=== PATIENT | female | born 1995 | race Hispanic/Latino ===

== ENCOUNTER 2018-11-23 15:00 | Emergency (ER) | payer BC ==
[~2018-11-23] VITALS: Ht 165.1 cm; Wt 72.6 kg
[2018-11-23] MEDS ORDERED: SODIUM CHLORIDE 0.9% 1000ML 1,000 ML ONE (15:20)
[2018-11-23] MEDS ORDERED: ONDANSETRON HCL INJ 2MG/ML 2ML 2 MG/ML VIAL ONE (15:20)
[2018-11-23] MEDS ORDERED: KETOROLAC TROMETHAMINE 30 MG/ML VIAL ONE (15:21)
--- NOTE | 2018-11-23 15:34 | NUR ---
PARENTS HERE TO ROOM WITH PT.
--- NOTE | 2018-11-23 15:34 | NUR ---
WARM BLANKETS. MD STATES BLADDER SCAN WITH ULTRASOUND DONE AND HAS POST RISIDUAL >100CC
--- NOTE | 2018-11-23 15:35 | NUR ---
HOLD IVF'S PER MD. NOT GIVEN AT THIS TIME.
--- NOTE | 2018-11-23 15:36 | NUR ---
PREG TEST NEGATIVE.
--- NOTE | 2018-11-23 16:03 | NUR ---
IN AND OUT CATHETER DONE FOR OUTPUT MEASUREMENT PER MD. MD STATES OBSERVATION OF "REALLY BIG BLADDER" ON CT SCAN AND "A LITTLE" MORE THAN 100CC OF URINE NOTED IN BLADDER POST VOID. STERILE PROCEDURE FOLLOWED, MOM WITH PT, STRAIGHT CATHED EMPTIED 135CC OF CLEAR STRAW COLORED URINE. PT TOLERATED FAIRLY WELL.
--- NOTE | 2018-11-23 16:03 | Diagnostic Imaging Report ---
EXAMINATION: CT of the abdomen and pelvis without contrast. TECHNIQUE: Helical CT images of the abdomen and pelvis were performed from the lung bases to the lesser trochanters. No intravenous contrast was given per renal stone protocol. Coronal and sagittal reformatted images were obtained.Dose modulation, iterative reconstruction, and/or weight based adjustment of the mA/kV was utilized to reduce the radiation dose to as low as reasonably achievable. COMPARISON: None. CLINICAL HISTORY:Abdominal pain DISCUSSION: ABSENCE OF INTRAVENOUS CONTRAST DECREASES SENSITIVITY FOR DETECTION OF FOCAL LESIONS AND VASCULAR PATHOLOGY. ABDOMEN/PELVIS: LOWER THORAX: Unremarkable. HEPATOBILIARY:No focal hepatic lesions. No biliary ductal dilation. The gallbladder is normal. SPLEEN: No splenomegaly. PANCREAS: No focal masses or ductal dilatation. ADRENALS: No adrenal nodules. KIDNEYS/URETERS: No hydronephrosis, stones, or solid mass lesions. PELVIC ORGANS/BLADDER: The bladder is normal. PERITONEUM/RETROPERITONEUM: No free air or fluid. LYMPH NODES: No intra-abdominal,retroperitoneal, pelvic or inguinal lymphadenopathy. VESSELS: Limited evaluation. GI TRACT: No distention or wall thickening. Appendix normal. BONES AND SOFT TISSUES: No bony destructive lesions. No soft tissue abnormalities. IMPRESSION: No acute noncontrast CT finding. Signed by: Dr. Suleiman Sanchez M.D. on 11/23/2018 4:00 PM
--- NOTE | 2018-11-23 17:05 | Diagnostic Imaging Report ---
ADDENDUM #1 I have reviewed the images and agree with findings in preliminary report. Signed by: Dr. Alma Mills M.D. on 11/23/2018 9:19 PM ORIGINAL REPORT Exam: Noncontrast Head CT History: Dizziness, 23-year-old female Comparison studies: None Technique: Axial images were obtained from the skull base to the vertex. Coronal and sagittal reconstructions obtained from the axial data. Dose modulation, iterative reconstruction, and/or weight based adjustment of the mA/kV was utilized to reduce the radiation dose to as low as reasonably achievable. Findings: Scalp/skull: No abnormalities. No fractures, blastic or lytic lesions. Extra-axial spaces: No masses. No fluid collections. Brain sulci: Appropriate for age. Ventricles: Normal in size and configuration. No hydrocephalus. Parenchyma: No abnormal densities. No masses, hemorrhage, acute or chronic cortical vascular insults. Sellar/suprasellar region: No abnormalities Craniocervical junction: Patent foramen magnum. No Chiari one malformation. IMPRESSION: No acute abnormalities. Report dictated by neuroradiology fellow. Final read to follow. Signed by: Rosas Ding MD on 11/23/2018 5:01 PM
== END 2018-11-23 17:54 | disposition home or self-care (01) ==
LOC: FSED 15:00
DX: R10.30 Lower abdominal pain, unspecified (principal); R33.9 Retention of urine, unspecified; R42 Dizziness and giddiness; R51 Headache
CPT/HCPCS: 70450; 74176; 80053; 81003; 81025; 85025; 93005; 99284; J1885; J2405; J7030